=== PATIENT | female | born 1955 | race Caucasian/White ===

== ENCOUNTER → 2019-10-10 11:20 | Outpatient (CLI) | payer OTHER, SELFPAY ==
--- NOTE | 2019-10-10 | DI.MG.S_ITS ---
BILATERAL DIGITAL SCREENING MAMMOGRAM 3D/2D WITH CAD: 10/10/2019 CLINICAL: Routine screening. Comparison is made to exams dated: 08/03/2017 mammogram, 03/14/2016 mammogram, and 09/23/2014 mammogram - [facility]. There are scattered fibroglandular elements in both breasts. Current study was also evaluated with a Computer Aided Detection (CAD) system. No significant masses, calcifications, or other findings are seen in either breast. There has been no significant interval change. IMPRESSION: NEGATIVE There is no mammographic evidence of malignancy. A 1 year screening mammogram is recommended. This exam was interpreted at Station ID: [id number]. NOTE: For mammograms, a report in lay terms will be sent to the patient. Approximately 15% of breast malignancies will not be visualized mammographically. In the management of a palpable breast mass, a negative mammogram must not discourage biopsy of a clinically suspicious lesion. Electronically Signed By: Earl martinez/jenny:10/10/2019 14:38:50 letter sent: Normal Exam ACR BI-RADS Category 1: Negative 3341F
== END ==
PROVIDERS: PCP Family Medicine; Visit Provider Family Medicine
DX: Z12.31 Encounter for screening mammogram for malignant neoplasm of breast (principal)
CPT/HCPCS: 77063; 77067

== ENCOUNTER → 2021-08-03 12:13 | Outpatient (CLI) | payer OTHER, SELFPAY ==
--- NOTE | 2021-08-03 12:15 | DI.MRI.S_ITS ---
PROCEDURE: MR KNEE RT WO CON INDICATIONS: Pain in right knee TECHNIQUE: Noncontrast sagittal PD fast spin echo and T2 fast spin echo with fat saturation, sagittal 3-D FLASH with fat saturation; coronal T1 spin echo and PD fast spin echo with fat saturation, and axial PD fast spin echo with fat saturation through the knee. COMPARISON: None. FINDINGS: Menisci: Medial meniscus: Ill-defined tear involving the body and posterior horn of the medial meniscus. Adjacent small parameniscal cysts measuring 2-3 mm next to the posterior horn. There is partial extrusion Lateral meniscus: Intact. Cruciate ligaments: Anterior cruciate ligament: Intact. Posterior cruciate ligament: Intact. Medial structures: The medial collateral ligament: There is medial bowing of the medial collateral ligament, with mild internal signal changes and no complete rupture. There is adjacent soft tissue edema. The appearance could reflect reactive changes to medial compartment pathology, versus low-grade sprain of the MCL. Semimembranosus tendon: Insertional tendinopathy with intrasubstance T2 hyperintensity. Visualized pes anserinus tendons: Mild distal tenosynovitis Lateral structures: The lateral collateral ligament intact. Biceps femoris tendon appears intact. Popliteus tendon grossly unremarkable. Iliotibial band appears intact. Anterior structures: Quadriceps tendon: Intact. Medial patellofemoral ligament: Intact. Lateral patellofemoral ligament: Intact. Patellar tendon: Mild tendinopathy. Anterior soft tissues: Prepatellar and superficial infrapatellar subcutaneous edema/fluid. Deep infrapatellar region: Normal. Bones and cartilage: Marrow: Marrow edema involving the anteromedial femoral condyle and the anteromedial tibial plateau suggestive of marrow contusions although could be reactive to extensive medial meniscal tear and joint degeneration. Please correlate to history. Medial compartment: Near full-thickness loss of the femoral cartilage. There is diffuse partial-thickness loss of the tibial cartilage. Lateral compartment: Diffuse surface fraying partial-thickness loss of the central weight-bearing femoral and tibial cartilage. Patellofemoral compartment: Full-thickness loss patellar patellar and lateral femoral trochlea cartilage with underlying subchondral cystic change and marrow edema. Joint space: Effusion: Small joint effusion. Popliteal fossa: Al's cyst measuring approximately 4 cm in the cephalocaudal dimension. There could be slight partial rupture. Small ganglion cyst at the origin of the medial gastrocnemius. Ganglion cyst also noted posterior to the tibial attachment of the PCL measuring 1.7 cm. Loose bodies: None. IMPRESSION: Medial meniscal tear involving the body and posterior horn with partial extrusion. Associated sub 5 mm parameniscal cyst . 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 Multilevel spondylosis/endplate changes. Diffuse facet arthropathy. Wall the the the radial reviewed elk a negative the neck Patellar tendinopathy Small joint effusion Al's cyst, in addition to other ganglion cysts as described above. Dictated by: Enrique George M.D. on 08/03/2021 at 13:57 Approved by: Enrique George M.D. on 08/03/2021 at 14:09
== END ==
PROVIDERS: PCP Family Medicine; Referring Provider Family Medicine; Visit Provider Family Medicine
DX: M25.561 Pain in right knee (principal); S83.241A Other tear of medial meniscus, current injury, right knee, initial encounter; M17.11 Unilateral primary osteoarthritis, right knee; M25.461 Effusion, right knee; M71.21 Synovial cyst of popliteal space [Baker], right knee; G89.29 Other chronic pain
CPT/HCPCS: 73721

== ENCOUNTER 2022-10-17 14:41 | Emergency (ER) | payer MEDICARE, OTHER, SELFPAY ==
[2022-10-17 14:48] VITALS: BP 165/92; PULSE 83; RESP 18; TEMP 36.7; O2SAT 98
--- NOTE | 2022-10-17 14:51 | DI.US.S_ITS ---
PROCEDURE: US PERIPH VENOUS LOW EXTREM LT INDICATIONS: CALF PAIN TECHNIQUE: Real-time imaging, as well as color and pulse Doppler interrogation, were performed of the lower extremity deep veins from the inguinal ligament to the popliteal fossa. COMPARISON: None. FINDINGS: The common femoral, femoral and popliteal veins are normally compressible, and free of intraluminal thrombus. Color and pulse Doppler demonstrate normal phasic intraluminal flow. There is normal augmentation response to distal compression maneuver. Al's cyst is present measuring 4.7 x 1.5 x 2 point cm. IMPRESSION: No deep venous thrombosis. Al's cyst. Dictated by: Dorina Vu M.D. on 10/17/2022 at 15:50 Approved by: Dorina Vu M.D. on 10/17/2022 at 15:51
[2022-10-17 18:00] VITALS: PULSE 74; O2SAT 99
[2022-10-17 18:01] VITALS: BP 168/84; PULSE 73; O2SAT 99
--- NOTE | 2022-10-17 18:12 | ED.EXTPRO ---
HPI - Extremity Problem General Chief complaint: Extremity Problem,Nontraumatic Stated complaint: PAIN IN lf CALF & BEHIND KNEE & SPOT IN BUTT CHEEK Time Seen by Provider: 10/17/22 18:05 Source: patient Mode of arrival: Ambulatory History of Present Illness HPI Narrative: 67F nonsmoker with noncontributory medical history presents at the request of her PCP for evaluation of pain and swelling behind her left knee in the absence of any known injury or overuse. She is noticed this swelling and increasing pain behind her left knee for least the past few days and also has a small area in her left buttock. She denies any, warmth or drainage. She denies any history of the same. She denies dizziness, weakness. She has no chest pain or shortness of breath. She denies nausea, vomiting or diarrhea. She recently was on a long distance road trip and after discussing this with her primary care provider she was sent here for evaluation of possible clot Related Data Home Medications Medication Instructions Recorded Confirmed [FISH OIL] ##0 11/05/12 ACETAMINOPHEN 0 mg PO Q4HP ##0 04/22/13 Previous Rx's Medication Instructions Recorded terbinafine HCl 250 mg tablet 250 mg PO QDAY #30 tabs 07/11/17 (Lamisil) betamethasone dipropionate 0.05 % 0.05 % topical SEE INSTRUCTIONS #1 07/17/17 topical ointment tube Allergies Allergy/AdvReac Type Severity Reaction Status Date / Time trazodone [TRAZODONE] Allergy Mild HIVES Unverified 03/06/18 12:23 METALLIC THREADS/GLITTER Allergy Mild SWELLING Uncoded 03/06/18 12:23 Review of Systems Review of Systems Narrative: GENERAL: Denies chills, fatigue, malaise, fever, sweats. HEENT: Denies sinus pain, ear pain, sore throat, difficulty swallowing, dizziness. RESPIRATORY: Denies dyspnea, cough, wheezing, hemoptysis, sputum. CARDIOVASCULAR: Denies chest pain, palpitations, orthopnea, edema, GASTROINTESTINAL: Denies nausea, vomiting, abdominal pain, diarrhea, constipation, melena. : Denies dysuria, frequency, incontinence, hematuria, urinary retention. MUSCULOSKELETAL: See HPI SKIN: Denies rash, skin lesions, or other NEUROLOGIC: Denies weakness, headache, numbness, change in speech, confusion, seizures, incoordination. PSYCHIATRIC: No concerning psychosocial issues. 12 point review of systems is negative except for those stated above Patient History Social History Smoking Status: Never smoker Smoking Status: Never smoker Exam Narrative Exam Narrative: GENERAL: [67] year old patient appears stated age. Well-developed patient, in mild distress. HEAD: Atraumatic. Normocephalic. EYES: Pupils equal round and reactive. Extraocular motions intact. No scleral icterus. No injection or drainage. ENT: Nose without bleeding, purulent drainage. Throat without erythema, tonsillar hypertrophy or exudate. Airway patent. NECK: Trachea midline. Non tender CARDIOVASCULAR: Regular rate and rhythm without murmurs, gallops, or rubs. RESPIRATORY: Clear to auscultation. Breath sounds equal bilaterally. No wheezes, rales, or rhonchi. GASTROINTESTINAL: Abdomen soft, non-tender, nondistended. EXTREMITIES: Moderate swelling behind left knee that is somewhat tender, no fluctuance, erythema or warmth noted, no lymphangitis, no knee effusion. Negative calf squeeze, negative Homans sign BACK: Nontender without deformity or crepitance. No flank tenderness. NEURO: AOx3. SKIN: No rash or erythema of visible areas Initial Vital Signs Initial Vital Signs: Vital Signs Temperature 98.1 F 10/17/22 14:48 Pulse Rate 83 10/17/22 14:48 Respiratory Rate 18 10/17/22 14:48 Blood Pressure 165/92 H 10/17/22 14:48 Pulse Oximetry 98 10/17/22 14:48 Oxygen Delivery Method 10/17/22 14:48 Course Orders Ordered: ED Orders 10/17/22 14:51 US periph venous low extrem lt Stat Vital Signs Vital signs: Vital Signs - 8 hr 10/17/22 14:48 10/17/22 18:00 10/17/22 18:01 Temperature 98.1 F Pulse Rate 83 74 Respiratory Rate 18 Blood Pressure 165/92 H 168/84 H Pulse Oximetry 98 99 Oxygen Delivery Method Room Air 10/17/22 18:01 Temperature Pulse Rate 73 Respiratory Rate Blood Pressure Pulse Oximetry 99 Oxygen Delivery Method Room Air MDM - Extremity (Nontraumatic) Imaging Data US - DVT: Radiologist's Impression: Diagnostics Reports Erica Kenyon??67??F??1955 ? Allergy/Adv: trazodone, [METALLIC THREADS/GLITTER] (More??) Close Vascular Ultrasound (Signed) Dorina Vu - 10/17/22 Knee MRI (Signed) ArielEnrique - 08/03/21 Mammogram Screening (Signed) CortesEarl - 10/10/19 Launch?[address] [address] Ultrasound Report Signed Patient: Erica Kenyon MR#: [id number] : 1955 Acct:[id number] Age/Sex: 67 / F Date of Service: 10/17/22 Loc: ED Accession Number: [id number] ?? Procedure: US periph venous low extrem lt Ordering Provider: Tato Freedman D.O. PROCEDURE:? US PERIPH VENOUS LOW EXTREM LT ? INDICATIONS:? CALF PAIN ? TECHNIQUE:? Real-time imaging, as well as color and pulse Doppler interrogation, were performed of the lower extremity deep veins from the inguinal ligament to the popliteal fossa.? ? COMPARISON:? None. ? FINDINGS:? The common femoral, femoral and popliteal veins are normally compressible, and free of intraluminal thrombus.? Color and pulse Doppler demonstrate normal phasic intraluminal flow.? There is normal augmentation response to distal compression maneuver. ?Al's cyst is present measuring 4.7 x 1.5 x 2 point cm. ? IMPRESSION:? ? No deep venous thrombosis. ? Al's cyst.? ? ? Dictated by: Dorina Vu M.D. on 10/17/2022 at 15:50 ? ? Approved by: Dorina Vu M.D. on 10/17/2022 at 15:51 ? Discharge Plan Departure Patient Disposition: Home Clinical Impression: Cyst, Al's knee Instructions: DI for Al Cyst Activity Restrictions/Additional Instructions: *You have been diagnosed with [left lower extremity Al's cyst. As we discussed your ultrasound is reassuring and there is no evidence of clot. Thankfully there is no specific treatment for the majority of Al's cysts and they require symptomatic treatment only such as Tylenol or Motrin for aches and pains] *What to do: *Please continue to take your regular medications as directed. *Please follow up with your primary care provider in 2-3 days, call for an appointment. Let them know you were seen in the Emergency Department and that we ask that you be seen in follow up. We will electronically transmit a record of today's note if your PCP is in our system *If you do not have a primary care provider please contact the [facility] Resource line at [phone]. They will ask some questions about your medical history and help get you set up with a doctor in the community. *Return to Emergency Department if you should have any new, worsening or concerning symptoms, such as [fever greater than 101 F, shaking chills, worsening pain, persistent vomiting or other bothersome symptoms] Prescriptions: No Action [FISH OIL] Qty: 0 ACETAMINOPHEN 0 mg PO Q4HP Qty: 0 terbinafine HCl [Lamisil] 250 MG tablet 250 mg PO QDAY Qty: 30 0RF betamethasone dipropionate 0.05 % ointment 0.05 % Topical SEE INSTRUCTIONS Qty: 1 1RF Referrals: Alma Robison MD [Primary Care Provider] - Visit Report Forms: Patient Portal/API
--- NOTE | 2022-10-17 18:22 | PC.NURSE ---
Assessment completed by Dr. Gupta, this nurse in agreement.
== END 2022-10-17 18:24 | disposition home or self-care (01) ==
PROVIDERS: Emergency Provider Emergency Medicine; PCP Family Medicine
DX: M71.22 Synovial cyst of popliteal space [Baker], left knee (principal)
CPT/HCPCS: 93971; 99283

== ENCOUNTER → 2022-11-01 16:24 | Outpatient (CLI) | payer MEDICARE, OTHER, SELFPAY ==
--- NOTE | 2022-11-01 16:26 | DI.MG.S_ITS ---
BILATERAL DIGITAL SCREENING MAMMOGRAM 3D/2D WITH CAD: 11/01/2022 CLINICAL: Routine screening. Comparison is made to exams dated: 10/10/2019 mammogram, 08/03/2017 mammogram, and 03/14/2016 mammogram - . There are scattered areas of fibroglandular density in both breasts (category b / 25%-50% glandular tissue). Current study was also evaluated with a Computer Aided Detection (CAD) system. No significant masses, calcifications, or other findings are seen in either breast. There has been no significant interval change. IMPRESSION: NEGATIVE There is no mammographic evidence of malignancy. A 1 year screening mammogram is recommended. Based on the Tyrer Cuzick model (a risk assessment model) the patient's lifetime risk is 6.9% and her 10 year risk is 3.5%. According to the ACR, ACS, and NCCN guidelines, an annual breast MRI exam along with mammogram is recommended if the patient's lifetime risk is 20% or greater. This exam was interpreted at Station ID: [id number]. NOTE: For mammograms, a report in lay terms will be sent to the patient. Approximately 15% of breast malignancies will not be visualized mammographically. In the management of a palpable breast mass, a negative mammogram must not discourage biopsy of a clinically suspicious lesion. Electronically Signed By: Geraldo ortiz/jenny:11/01/2022 17:25:50 letter sent: Normal Exam ACR BI-RADS Category 1: Negative 3341F
== END ==
PROVIDERS: PCP Family Medicine; Referring Provider Family Medicine; Visit Provider Family Medicine
DX: Z12.31 Encounter for screening mammogram for malignant neoplasm of breast (principal)
CPT/HCPCS: 77063; 77067

== ENCOUNTER → 2023-09-20 09:45 | Outpatient (CLI) | payer MEDICARE, OTHER, SELFPAY ==
--- NOTE | 2023-09-20 | DI.RAD.S_ITS ---
Bone Density Report Name: THADDEUS MAR Age: 68 Sex: Female Ethnicity: White Date of : 1955 Indication: postmenopausal; screening for osteoporosis; Referring Provider: PETER TAN Study: Bone densitometry was performed. Exam Date: September 20, 2023 Accession number: [id number] Bone Density: Region BMD T-score Z-score Classification AP Spine(L1-L4) 1.064 0.2 2.1 Normal Femoral Neck (Left) 0.736 -1.0 0.6 Normal Total Hip (Left) 0.882 -0.5 0.8 Normal Femoral Neck (Right) 0.736 -1.0 0.6 Normal Total Hip (Right) 0.882 -0.5 0.8 Normal Total Hip Mean 0.882 -0.5 0.8 Normal World Health Organization criteria for BMD impression classify patients as: Normal (T-score at or above -1.0), Osteopenia (T-score between -1.0 and -2.5), or Osteoporosis (T-score at or below -2.5). 10-year Fracture Risk: FRAX not reported because: All T-scores for Spine Total, Hip Total, Femoral Neck at or above -1.0 Previous Exams: -- Region Exam Age BMD T-score BMD Change BMD Change Date g/cm2 vs Baseline vs Previous -- AP Spine (L1-L4) 09/20/2023 68 1.064 0.2 -0.052 (-4.6%)# -0.052 (-4.6%)# 08/03/2017 61 1.116 0.6 Total Hip(Left) 09/20/2023 68 0.882 -0.5 -0.116 (-11.6%)# -0.116 (-11.6%)# 08/03/2017 61 0.997 0.5 Total Hip(Right) 09/20/2023 68 0.882 -0.5 -0.086 (-8.8%)# -0.086 (-8.8%)# 08/03/2017 61 0.968 0.2 -- *Denotes significance at 95% confidence level, LSC for AP Spine = 0.022 g/cm2, LSC for Total Hip = 0.027 g/cm2 # Denotes dissimilar scan types or analysis methods Impression: The patient has normal bone mass. No significant bone loss was observed. Discussion: BONE DENSITY IS ABOVE THE MINIMUM DESIRABLE LEVEL AT ALL SKELETAL SITES TESTED. This patient's bone mineral density is above the minimum desirable level (T-score -1.0 or better) at all sites measured. The patient should follow a healthful lifestyle (good nutrition with adequate calcium and vitamin D, and appropriate weight-bearing exercise). Follow-Up: Consider repeating this study in 5 years or sooner if there is some new clinical indication. Reported by: MYRIAM HIRSCH M.D. on 09/20/2023 10:21:00 AM.
== END ==
PROVIDERS: PCP Family Medicine; Referring Provider Family Medicine; Visit Provider Family Medicine
DX: Z78.0 Asymptomatic menopausal state (principal); Z13.820 Encounter for screening for osteoporosis
CPT/HCPCS: 77080

== ENCOUNTER 2023-10-05 20:29 | Emergency (ER) | payer MEDICARE, OTHER, SELFPAY ==
[2023-10-05] VITALS (9 sets, daily range): BP systolic 114–183; BP diastolic 65–84; PULSE 61–72; RESP 12–19; TEMP 36.9; O2SAT 96–99; BMI 23.6
--- NOTE | 2023-10-05 20:45 | DI.RAD.S_ITS ---
PROCEDURE: XR CHEST 1V INDICATIONS: chest pain TECHNIQUE: One view of the chest was acquired. COMPARISON: BASHIR Kelly, CHEST 2 VIEW, 06/02/2015, 9:34. FINDINGS: Surgical changes and devices: None. Lungs and pleura: Lungs are clear. No pleural effusions or pneumothorax. Mediastinum: Mediastinal contours appear normal. Heart size is normal. Bones and chest wall: No suspicious bony lesions. Overlying soft tissues appear unremarkable. IMPRESSION: No acute cardiopulmonary pathology. Dictated by: Rodrigo Saxena M.D. on 10/05/2023 at 21:50 Approved by: Rodrigo Saxena M.D. on 10/05/2023 at 21:51
[2023-10-05 21:17] LABS: Add Manual Diff / Slide Review NO; Basophils Absolute Auto 0 /uL (0-100); Basophils Percent Auto 0.5 % (0-2); Eosinophils Absolute Auto 200 /uL (0-450); Eosinophils Percent Auto 2.2 % (2-4); Hematocrit 37.8 % (36-46); Lymphocytes Absolute Auto 2300 /uL (1100-4500); Lymphocytes Percent Auto 29.2 % (25-40); Mean Corpuscular HGB Conc 34.3 % (30-36); Mean Corpuscular Hemoglobin 29.4 PG (26-34); Mean Corpuscular Volume 85.8 fL (80-100); Monocytes Absolute Auto 500 /uL (0-900); Monocytes Percent Auto 6.4 % (3-14); Neutrophils Absolute Auto 4800 /uL (1500-7000); Neutrophils Percent Auto 61.7 % (50-75); Platelet Count 283 X10^3/uL (150-400); Red Cell Distribution Width 13.9 % (11.6-14.8); White Blood Cell Count 7.7 X10^3/uL (4.5-11.0)
[2023-10-05 21:19] LABS: Prothrombin Time 11.2 SECONDS (10.1-12.7)
[2023-10-05 21:22] LABS: PTT Partial Thromboplastin Tim 31 SECONDS (26-36)
[2023-10-05 21:24] LABS: Alanine Aminotransferase 19 IU/L (<35); Albumin 4.3 g/dL (3.5-5.0); Albumin Globulin Ratio 1.3 (1.0-2.8); Alkaline Phosphatase 72 U/L (38-126); Aspartate Aminotransferase 25 IU/L (14-36); BUN Creatinine Ratio 27.4 (6-22); Bilirubin Total 0.5 mg/dL (0.2-1.3); Blood Urea Nitrogen 20 mg/dL (7-17); Calcium 9.3 mg/dL (8.4-10.2); Carbon Dioxide 23 mmol/L (22-32); Chloride 106 mmol/L (98-107); Creatine Kinase 64 U/L (30-135); Estimated Glomerular Filt Rate > 60 mL/min (>60); Globulin 3.4 g/dL (1.7-4.1); Glucose 94 mg/dL (80-110); HEMOLYSIS 17 (0-50); Lipase 110 U/L (23-300); Magnesium 2.1 mg/dL (1.6-2.3); Potassium 3.8 mmol/L (3.4-5.1); Sodium 138 mmol/L (137-145); Total Protein 7.7 g/dL (6.3-8.2)
[2023-10-05 21:35] LABS: Troponin I < 0.012 ng/mL (0.01-0.034)
--- NOTE | 2023-10-05 23:19 | ED_ITS ---
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 She was folding laundry describes this as nothing particularly strenuous when she had the acute onset of severe sharp stabbing pain down the inner portion of her left arm from mid bicep to midforearm. It was painful to move or bend her arm in any way. She took ibuprofen and after consultation [place] medical providers [place] the [facility] come over for further evaluation. Her family history is impressive for coronary disease with a father who had cardiac arrest at the age of 48 and at 52. An older brother with a CABG at 50 and older sister with a CABG 70 a younger brother with a stent at 50 and a CABG at 70. Approximately 5 years ago she did have an evaluation with the [facility] with a standard treadmill test that was reassuring. She does not describe any exertional dyspnea, orthopnea, chest pain, palpitations or increasing fatigue over the last week. No fevers, cough, chills. Related Data Home Medications Medication Instructions Recorded Confirmed [FISH OIL] ##0 11/05/12 ACETAMINOPHEN 0 mg PO Q4HP ##0 04/22/13 Previous Rx's Medication Instructions Recorded terbinafine HCl 250 mg tablet 250 mg PO QDAY #30 tabs 07/11/17 (Lamisil) betamethasone dipropionate 0.05 % 0.05 % topical SEE INSTRUCTIONS #1 07/17/17 topical ointment tube Allergies Allergy/AdvReac Type Severity Reaction Status Date / Time tioconazole Allergy Mild ITCHING Verified 10/05/23 20:38 [From Monistat 1 (tioconazole)] trazodone [TRAZODONE] Allergy Mild HIVES Unverified 03/06/18 12:23 METALLIC THREADS/GLITTER Allergy Mild SWELLING Uncoded 03/06/18 12:23 Review of Systems Review of Systems Narrative: Pertinent positive and negative findings as per HPI Patient History Social History Smoking Status: Never smoker Smoking Status: Never smoker alcohol intake frequency: 0-2 drinks per day Substance Use Type: does not use Exam Initial Vital Signs Initial Vital Signs: Vital Signs Temperature 98.5 F 10/05/23 20:32 Pulse Rate 71 10/05/23 20:32 Respiratory Rate 18 10/05/23 20:32 Blood Pressure 183/84 H 10/05/23 20:32 Pulse Oximetry 99 10/05/23 20:32 Oxygen Delivery Method Room Air 10/05/23 20:32 General: Healthy appearing, in no acute distress. Able to give a complete and coherent history. Well-nourished well-developed HEENT: Moist mucous membranes, normal sclera with reactive pupils, Neck: No JVD, supple Respiratory: Lungs are clear to auscultation, no wheezing no rales no rhonchi. Full and symmetrical air movement Cardiac: Regular rate and rhythm no murmurs no bruits Abdomen: Soft, nontender, good bowel tones, no flank pain Skin: Warm and dry, no rashes Neurologic: Grossly neurologically intact with no obvious asymmetries or abnormalities Extremities: No trauma, well perfused. No residual pain in the left upper extremity and no tenderness with any manipulation of the shoulder elbow or wrist on the left side Psych: Cooperative, appropriate insight and affect Course Orders Ordered: ED Orders 10/05/23 20:41 EKG-12 Lead Stat 10/05/23 20:45 XR chest 1V Stat 10/05/23 21:00 Complete Blood Count AUTO DIFF Stat Comprehensive Metabolic Panel Stat Lipase Stat Magnesium Stat PTT Partial Thromboplastin Virgil Stat Prothrombin Time INR Stat Troponin & CK Cardiac Panel Stat 10/05/23 23:47 Trop I [Troponin I] Stat Discontinued Medications Aspirin (Aspirin 81 Mg Chew Tab) 324 mg PO NOW ONE Stop: 10/05/23 20:45 Last Admin: 10/05/23 21:30 Dose: Not Given Documented By: ALCIRA Vital Signs Vital signs: Vital Signs - 8 hr 10/05/23 20:32 10/05/23 21:03 10/05/23 21:30 Temperature 98.5 F Pulse Rate 71 72 Respiratory Rate 18 19 Blood Pressure 183/84 H 157/81 H Pulse Oximetry 99 98 Oxygen Delivery Method Room Air 10/05/23 21:30 10/05/23 21:59 10/05/23 22:00 Temperature Pulse Rate 72 70 Respiratory Rate 19 17 Blood Pressure 144/68 H Pulse Oximetry 98 96 Oxygen Delivery Method 10/05/23 22:00 10/05/23 22:30 10/05/23 22:30 Temperature Pulse Rate 68 71 Respiratory Rate 16 16 Blood Pressure 122/71 Pulse Oximetry 96 96 Oxygen Delivery Method 10/05/23 23:00 10/05/23 23:00 10/05/23 23:30 Temperature Pulse Rate 63 69 Respiratory Rate 12 19 Blood Pressure 128/69 Pulse Oximetry 97 98 Oxygen Delivery Method 10/05/23 23:58 10/05/23 23:58 10/06/23 00:00 Temperature Pulse Rate 61 Respiratory Rate 14 Blood Pressure 114/65 123/69 Pulse Oximetry 97 Oxygen Delivery Method 10/06/23 00:00 10/06/23 00:30 10/06/23 00:30 Temperature Pulse Rate 63 62 Respiratory Rate 17 23 Blood Pressure 114/70 Pulse Oximetry 96 96 Oxygen Delivery Method Medical Decision Making Lab Data 10/05/23 21:00 10/05/23 21:00 Labs: Lab Results 10/05/23 10/05/23 Range/Units 21:00 23:47 WBC 7.7 (4.5-11.0) X10^3/uL RBC 4.40 (4.0-5.2) X10^6/uL Hgb 13.0 (12.0-16.0) g/dL Hct 37.8 (36-46) % MCV 85.8 (80-100) fL MCH 29.4 (26-34) PG MCHC 34.3 (30-36) % RDW 13.9 (11.6-14.8) % Plt Count 283 (150-400) X10^3/uL Neut % (Auto) 61.7 (50-75) % Lymph % (Auto) 29.2 (25-40) % Roberts % (Auto) 6.4 (3-14) % Eos % (Auto) 2.2 (2-4) % Baso % (Auto) 0.5 (0-2) % Neut # (Auto) 4800 (4703-5689) /uL Lymph # (Auto) 2300 (4025-3171) /uL Roberts # (Auto) 500 (0-900) /uL Eos # (Auto) 200 (0-450) /uL Baso # (Auto) 0 (0-100) /uL PT 11.2 (10.1-12.7) SECONDS INR 1.0 (0.9-1.3) APTT 31 (26-36) SECONDS Sodium 138 (137-145) mmol/L Potassium 3.8 (3.4-5.1) mmol/L Chloride 106 (98-107) mmol/L Carbon Dioxide 23 (22-32) mmol/L BUN 20 H (7-17) mg/dL Creatinine 0.73 (0.52-1.04) mg/dL Estimated GFR > 60 (>60) mL/min BUN/Creatinine Ratio 27.4 H (6-22) Glucose 94 (80-110) mg/dL Calcium 9.3 (8.4-10.2) mg/dL Magnesium 2.1 (1.6-2.3) mg/dL Total Bilirubin 0.5 (0.2-1.3) mg/dL AST 25 (14-36) IU/L ALT 19 (<35) IU/L Alkaline Phosphatase 72 (38-126) U/L Total Creatine Kinase 64 (30-135) U/L Troponin I < 0.012 < 0.012 (0.01-0.034) ng/mL Total Protein 7.7 (6.3-8.2) g/dL Albumin 4.3 (3.5-5.0) g/dL Globulin 3.4 (1.7-4.1) g/dL Albumin/Globulin Ratio 1.3 (1.0-2.8) Lipase 110 (23-300) U/L [facility] Narrative Medical decision making narrative: CC: Left arm pain while folding laundry at 5:00 p.m. today Complicating co-morbidities: Very impressive family history for early coronary disease Data collected from: patient, Social determinants of health that may influence the patients condition: They do live on [place] and accessing care can be a bit more challenging Differential considered: Acute coronary syndrome, musculoskeletal pain, Exam documented above, pertinent findings include: Completely resolved pain no abnormalities to muscular skeletal exam of the left upper extremity. Remainder of exam is entirely benign Lab Test results independently reviewed as above. Pertinent findings: CBC is unremarkable Chemistries show no acute finding Initial troponin is nondetectable Lipase is reassuring Independently reviewed EKG sinus rhythm at a rate of 70. Normal intervals, normal axis, no acute ischemic changes Imaging studies independently reviewed: Chest x-ray shows no acute cardiopulmonary abnormality Treatments:ibuprofen prior to arrival Re-evaluations: Pain entirely resolved, not reproducible with left arm manipulation Discussion: 68-year-old woman with no personal cardiac history but is significant family cardiac history with acute medial aspect left arm pain while she was folding laundry today it was painful to lift up move her arm extend or flex her elbow. Not associated with dyspnea, orthopnea, chest pain or palpitations. Because of the severity of the pain and the impressive family history recommendation was made to come to the emergency room for further cardiac evaluation. Cardiac evaluation is quite reassuring with a heart score of 3 which makes her low risk for 30 day major adverse cardiac event risk. This is reviewed with her and I believe she is safe for discharge home. At this point the most likely explanation is an acute musculoskeletal pain in the arm rather than cardiac abnormality. I have recommended that she follow up with her primary care physician and she may be a very appropriate person to schedule for nuclear medicine stress testing as an outpatient to help further stratify cardiac risk factors. At this point she is safe for discharge and all questions have been answered Discharge Plan Departure Patient Disposition: Home Clinical Impression: Musculoskeletal pain of left upper extremity Activity Restrictions/Additional Instructions: Thank you for coming in today With your family history, that pain in the left arm could very well have represented heart pain. Coming to the emergency department was absolutely appropriate. Fortunately your workup in the emergency department was very reassuring. There were no dramatic EKG changes and your 1st and 2nd troponin levels were both undetectable. At this point you are at very low risk for a major adverse coronary event and discharge home is safe. I suspect that the acute pain in your arm was a musculoskeletal issue which is why ibuprofen resolved the pain. On the other hand, with your family history I believe that consideration of a nuclear medicine stress test for further cardiac risk evaluation as an outpatient may well be a reasonable discussion to have with your primary care doctor. If you find that you are getting worse or develop any new symptoms, please feel free to return to the emergency department for further evaluation. Prescriptions: No Action [FISH OIL] Qty: 0 ACETAMINOPHEN 0 mg PO Q4HP Qty: 0 terbinafine HCl [Lamisil] 250 MG tablet 250 mg PO QDAY Qty: 30 0RF betamethasone dipropionate 0.05 % ointment 0.05 % Topical SEE INSTRUCTIONS Qty: 1 1RF Referrals: Alma Robison MD [Primary Care Provider] - Stand Alone Forms: Patient Portal/API
[2023-10-06] VITALS: BP 123/69; PULSE 63; RESP 17; O2SAT 96
[2023-10-06 00:20] LABS: Troponin I < 0.012 ng/mL (0.01-0.034)
[2023-10-06 00:30] VITALS: BP 114/70; PULSE 62; RESP 23; O2SAT 96
[2023-10-06 01:00] VITALS: BP 137/64; PULSE 60; RESP 14; O2SAT 94
[2023-10-06 01:30] VITALS: BP 126/62; PULSE 64; RESP 13; O2SAT 94
== END 2023-10-06 01:43 | disposition home or self-care (01) ==
PROVIDERS: Emergency Provider Emergency Medicine; PCP Family Medicine
DX: M79.602 Pain in left arm (principal); R07.9 Chest pain, unspecified
CPT/HCPCS: 36415; 71045; 80053; 82550; 83690; 83735; 84484; 85025; 85610; 85730; 93005; 93010; 99283; 99284

== ENCOUNTER → 2024-09-09 10:56 | Outpatient (CLI) | payer MEDICARE, OTHER, SELFPAY ==
--- NOTE | 2024-09-09 10:58 | DI.MG.S_ITS ---
BILATERAL DIGITAL SCREENING MAMMOGRAM 3D/2D WITH CAD: 09/09/2024 CLINICAL: Routine screening. Comparison is made to exams dated: 11/01/2022 mammogram, 10/10/2019 mammogram, and 08/03/2017 mammogram - [facility]. There are scattered areas of fibroglandular density (category b / 25%-50% glandular tissue). Current study was also evaluated with a Computer Aided Detection (CAD) system. No significant masses, calcifications, or other findings are seen in either breast. There has been no significant interval change. IMPRESSION: NEGATIVE There is no mammographic evidence of malignancy. A 1 year screening mammogram is recommended. Based on the Tyrer Cuzick model (a risk assessment model) the patient's lifetime risk is 6.6% and her 10 year risk is 3.5%. According to the ACR, ACS, and NCCN guidelines, an annual breast MRI exam along with mammogram is recommended if the patient's lifetime risk is 20% or greater. This exam was interpreted at Station ID: [id number]. NOTE: For mammograms, a report in lay terms will be sent to the patient. Approximately 15% of breast malignancies will not be visualized mammographically. In the management of a palpable breast mass, a negative mammogram must not discourage biopsy of a clinically suspicious lesion. Electronically Signed By: Geraldo [email or web address]:09/09/2024 12:19:45 letter sent: Normal Exam ACR BI-RADS Category 1: Negative
== END ==
LOC: MAMMO 10:57
PROVIDERS: PCP Family Medicine; Referring Provider Family Medicine; Visit Provider Family Medicine
DX: Z12.31 Encounter for screening mammogram for malignant neoplasm of breast (principal)
CPT/HCPCS: 77063; 77067

== ENCOUNTER 2025-01-28 13:59 | Emergency (ER) | payer MEDICARE, OTHER, SELFPAY ==
--- NOTE | 2025-01-28 14:07 | ED.DIZZY ---
HPI - Dizziness General Chief Complaint: Dizziness Stated Complaint: dizziness Time Seen by Provider: 01/28/25 14:07 History of Present Illness HPI Narrative: 69-year-old female wit past medical history of hyperlipidemia comes into the ED from home for evaluation of lightheaded dizziness flushing states that this started at 1:00 a.m. this morning, she states that she has had 2 other episodes at around 9:00 a.m., states that when this initially started she did call medics was evaluated and told that she could go to the ER for further evaluation treatment. At time of evaluation patient without headache lightheadedness dizziness no chest pain shortness breath fever chills nausea vomiting abdominal pain or any other GI/ symptoms time. Not on any blood thinners, no trauma no falls. Patient states she has not having any symptoms currently. She just states that given the symptoms previously wanted to be evaluated in the emergency department. Related Data Home Medications Medication Instructions Recorded Confirmed [FISH OIL] ##0 11/05/12 ACETAMINOPHEN 0 mg PO Q4HP ##0 04/22/13 Previous Rx's Medication Instructions Recorded terbinafine HCl 250 mg tablet 250 mg PO QDAY #30 tabs 07/11/17 (Lamisil) betamethasone dipropionate 0.05 % 0.05 % topical SEE INSTRUCTIONS #1 07/17/17 topical ointment tube Allergies Allergy/AdvReac Type Severity Reaction Status Date / Time tioconazole Allergy Mild ITCHING Verified 10/05/23 20:38 [From Monistat 1 (tioconazole)] trazodone [TRAZODONE] Allergy Mild HIVES Unverified 03/06/18 12:23 METALLIC THREADS/GLITTER Allergy Mild SWELLING Uncoded 03/06/18 12:23 Review of Systems Review of Systems Narrative: General: Denies fever, chills, weight loss HEENT: Denies headache, eye drainage, eye irritation, head trauma, sore throat, voice change Cardiovascular: Denies any chest pain, palpitations, tachycardia Respiratory: Denies any shortness of breath, cough, wheeze, stridor GI/: Denies any abdominal pain, nausea, vomiting, diarrhea, bright red blood per rectum, melanotic stools, urinary frequency, urinary retention, dysuria, hematuria MSK: Denies any joint pain, muscle pains, swelling Skin: Denies any rashes, lesions, discoloration Neuro: Positive lightheaded dizziness Psych: Denies SI/HI Patient History Social History Smoking Status: Never smoker Smoking Status: Never smoker alcohol intake frequency: 0-2 drinks per day Exam Narrative Exam Narrative: General: Cooperative, comfortable, well-developed, not in acute distress HEENT: Normocephalic, atraumatic, PERRLA, normal sclera, eyelids normal, Neck: Active full range of motion, atraumatic Chest: Normal to inspection, negative crepitus, no overlying erythema ecchymosis Respiratory: Normal respiratory effort, not in acute respiratory distress, clear to auscultation bilaterally negative cough, wheeze, tachypnea, rhonchi, rales Cardiology: Regular rate rhythm negative gallop, murmur, rubs GI/: Normal to inspection, soft, nonrigid, no tenderness to palpation, exam deferred MSK: Full range of active range of motion of all 4 extremities, atraumatic Skin: No rashes lesions noted Neuro: NIH of 0, no focal deficits Alert awake oriented x3, moves all 4 extremities spontaneously, cranial nerves intact, able to answer all questions appropriately follows commands appropriately Psych: Cooperative, negative suicidal or homicidal ideations Initial Vital Signs Initial Vital Signs: Vital Signs Pulse Oximetry 97 01/28/25 14:10 Course Orders Ordered: ED Orders 01/28/25 14:11 EKG-12 Lead Stat 01/28/25 14:14 CXR [XR chest 1V] Stat 01/28/25 14:15 CT angio head and neck Stat CT head/brain wo con Stat 01/28/25 14:20 CBC Auto Diff [Complete Blood Count AUTO DIFF] Stat CMP [Comprehensive Metabolic Panel] Stat Lipase Stat MAG [Magnesium] Stat Troponin & CK Cardiac Panel Stat 01/28/25 14:27 Covid-19 + FLU A/B + RSV - PCR Stat Vital Signs Vital signs: Vital Signs - 8 hr 01/28/25 14:10 01/28/25 14:12 01/28/25 14:21 Temperature 97.7 F Pulse Rate 85 75 Respiratory Rate 18 Blood Pressure 165/77 H Pulse Oximetry 97 99 99 Oxygen Delivery Method Room Air 01/28/25 14:21 01/28/25 14:30 01/28/25 14:30 Temperature Pulse Rate 66 Respiratory Rate 12 Blood Pressure 165/77 H 147/67 H Pulse Oximetry 98 Oxygen Delivery Method Room Air 01/28/25 15:00 01/28/25 15:00 01/28/25 15:30 Temperature Pulse Rate 69 72 Respiratory Rate 12 13 Blood Pressure 143/68 H Pulse Oximetry 99 98 Oxygen Delivery Method Room Air 01/28/25 15:30 Temperature Pulse Rate Respiratory Rate Blood Pressure 138/81 Pulse Oximetry Oxygen Delivery Method MDM - Dizziness Differential Diagnosis Differential diagnosis: Likely other (ACS, pneumonia, electrolyte abnormality, COVID, flu, intracranial hemorrhage, CVA) Lab Data 01/28/25 14:20 01/28/25 14:20 Labs: Lab Results 01/28/25 01/28/25 Range/Units 14:20 14:27 WBC 8.1 (4.5-11.0) X10^3/uL RBC 4.48 (4.0-5.2) X10^6/uL Hgb 13.2 (12.0-16.0) g/dL Hct 38.7 (36-46) % MCV 86.4 (80-100) fL MCH 29.5 (26-34) PG MCHC 34.1 (30-36) % RDW 13.9 (11.6-14.8) % Plt Count 304 (150-400) X10^3/uL Neut % (Auto) 65.3 (50-75) % Lymph % (Auto) 24.6 L (25-40) % [place] % (Auto) 4.7 (3-14) % Eos % (Auto) 3.4 (2-4) % Baso % (Auto) 2.0 (0-2) % Neut # (Auto) 5300 (7320-9613) /uL Lymph # (Auto) 2000 (1037-9842) /uL [place] # (Auto) 400 (0-900) /uL Eos # (Auto) 300 (0-450) /uL Baso # (Auto) 200 H (0-100) /uL Sodium 139 (137-145) mmol/L Potassium 3.6 (3.4-5.1) mmol/L Chloride 102 (98-107) mmol/L Carbon Dioxide 26 (22-32) mmol/L BUN 12 (7-17) mg/dL Creatinine 0.65 (0.52-1.04) mg/dL Estimated GFR > 60 (>60) mL/min BUN/Creatinine Ratio 18.5 (6-22) Glucose 115 H (80-110) mg/dL Calcium 9.3 (8.4-10.2) mg/dL Magnesium 2.0 (1.6-2.3) mg/dL Total Bilirubin 0.4 (0.2-1.3) mg/dL AST 31 (14-36) IU/L ALT 26 (<35) IU/L Alkaline Phosphatase 85 (38-126) U/L Total Creatine Kinase 59 (30-135) U/L Troponin I < 0.012 (0.01-0.034) ng/mL Total Protein 8.5 H (6.3-8.2) g/dL Albumin 4.9 (3.5-5.0) g/dL Globulin 3.6 (1.7-4.1) g/dL Albumin/Globulin Ratio 1.4 (1.0-2.8) Lipase 111 (23-300) U/L SARS-CoV-2 (PCR) Negative (Negative) Influenza A (RT-PCR) Flu a negative (NEGATIVE) Influenza B (RT-PCR) Flu b negative (NEGATIVE) RSV (PCR) Negative (Negative) Urine Dip Bedside Urine Glucose Negative Bedside Urine Bilirubin - Negative Bedside Urine Ketone - Negative Urine Specific [place] 1.010 Bedside Urine Occult Blood - Negative Bedside Urine pH 6.0 Bedside Urine Protein - Negative Bedside Urine Urobilinogen - Negative Bedside Urine Nitrite - Negative Bedside Urine Leukocytes - Negative Esterase Imaging Data Chest x-ray: Radiologist's Impression: [place] [address] CT Scan Report Signed Patient: Erica Kenyon MR#: [id number] : 1955 Acct:[id number] Age/Sex: 69 / F Date of Service: 01/28/25 Loc: ED Accession Number: [id number] Procedure: CT head/brain wo con Ordering Provider: Rashaun Tillman D.O. PROCEDURE: CT HEAD/BRAIN WO CON INDICATIONS: dizzy TECHNIQUE: Noncontrast 4.5 mm thick angled axial sections acquired from the foramen magnum to the vertex, with coronal and sagittal reformats. For radiation dose reduction, the following was used: automated exposure control, adjustment of mA and/or kV according to patient size. COMPARISON: None. FINDINGS: Image quality: Diagnostic. CSF spaces: Basal cisterns are patent. No extra-axial fluid collections. The ventricles are symmetric in size and shape. Brain: No intracranial bleeds or masses. There is cerebral volume loss for age, with resultant ventricular and sulcal prominence. There are periventricular and deep white matter chronic small vessel ischemic changes. There is intracranial internal carotid artery atherosclerosis. Skull and face: Calvarium and visualized facial bones appear intact, without suspicious lesions. Incidental note is made of hyperostosis frontalis. This is not considered to be pathologic in a woman of this age. Sinuses: Visualized sinuses and mastoids are clear. IMPRESSION: No imaging explanation is found for this patient's presenting symptoms. No acute intracranial pathology. To the limits of this noncontrast study, no findings of intracranial masses or mass effect can be seen. CT scan - head: Radiologist's Impression: [place] [address] CT Scan Report Signed Patient: Erica Kenyon MR#: [id number] : 1955 Acct:[id number] Age/Sex: 69 / F Date of Service: 01/28/25 Loc: ED Accession Number: [id number] Procedure: CT head/brain wo con Ordering Provider: Rashaun Tillman D.O. PROCEDURE: CT HEAD/BRAIN WO CON INDICATIONS: dizzy TECHNIQUE: Noncontrast 4.5 mm thick angled axial sections acquired from the foramen magnum to the vertex, with coronal and sagittal reformats. For radiation dose reduction, the following was used: automated exposure control, adjustment of mA and/or kV according to patient size. COMPARISON: None. FINDINGS: Image quality: Diagnostic. CSF spaces: Basal cisterns are patent. No extra-axial fluid collections. The ventricles are symmetric in size and shape. Brain: No intracranial bleeds or masses. There is cerebral volume loss for age, with resultant ventricular and sulcal prominence. There are periventricular and deep white matter chronic small vessel ischemic changes. There is intracranial internal carotid artery atherosclerosis. Skull and face: Calvarium and visualized facial bones appear intact, without suspicious lesions. Incidental note is made of hyperostosis frontalis. This is not considered to be pathologic in a woman of this age. Sinuses: Visualized sinuses and mastoids are clear. IMPRESSION: No imaging explanation is found for this patient's presenting symptoms. No acute intracranial pathology. To the limits of this noncontrast study, no findings of intracranial masses or mass effect can be seen. CT angio head and neck: Radiologist's Impression: [address] [address] [address] Scan Report Signed Patient: Erica Kenyon MR#: [id number] : 1955 Acct:[id number] Age/Sex: 69 / F Date of Service: 01/28/25 Loc: ED Accession Number: [id number] Procedure: CT angio head and neck Ordering Provider: Rashaun Tillman D.O. PROCEDURE: CT ANGIO HEAD AND NECK INDICATIONS: dizzy TECHNIQUE: After the administration of intravenous contrast, 1 mm thick sections acquired from the aortic arch through the [place]. 3-dimensional ydvxajz-hretqbeaa-nfhwvdqwvp (MIP) and/or volume rendering reformats were acquired of the central intracranial vasculature and neck separately. For radiation dose reduction, the following was used: automated exposure control, adjustment of mA and/or kV according to patient size. COMPARISON: [facility], CT, CT HEAD/BRAIN WO CON, 01/28/2025, 15:23. [facility], CR, XR CHEST 1V, 01/28/2025, 14:12. FINDINGS: Image quality: Diagnostic. BRAIN: See separately dictated CT head report of 01/28/2025. HEAD CT ANGIOGRAPHY: Anterior circulation: Intracranial internal carotid arteries are normal in size and flow. The flow within the paired anterior cerebral arteries is normal and symmetric. The flow within the middle cerebral arteries is normal and symmetric. The anterior communicating artery is seen. No aneurysms are seen. Posterior circulation: Visualized portions of the vertebral arteries demonstrate normal caliber, and join to form a normal appearing basilar artery. Flow within the posterior cerebral arteries is normal and symmetric. No aneurysms are seen. NECK CT ANGIOGRAPHY: Carotid system: The great vessels demonstrate a conventional anatomy as they arise from the aortic arch. The origins of the common carotid arteries appear patent. The common carotid arteries demonstrate normal caliber and courses. The bifurcation regions are both widely patent. The internal carotid arteries demonstrate normal calibers and courses. Posterior circulation: The origins of the vertebral arteries both appear widely patent. The more superior extracranial portions of both vertebral arteries also demonstrate normal courses and calibers. They join to form a normal appearing basilar artery. Soft tissues: Visualized neck soft tissues demonstrate no suspicious abnormalities. Bones: No suspicious bony lesions. Visualized cervical spine appears normally aligned. IMPRESSION: No significant intracranial arterial abnormality is seen. No significant abnormality is seen within the arteries of the neck. Any quantitative measurements of stenosis were performed using NASCET criteria. ECG Data Interpretation: EKG interpreted ED physician sinus 69 beats per minute QTC [address] changes no STEMI MDM Narrative Medical decision making narrative: 69-year-old female with a history of hyperlipidemia presents to the emergency department for lightheaded dizziness flushness states it started at 1:00 a.m. this morning. She states that she has had 2 other episodes when she is going from sitting to standing but denies any actual syncope. She states that when this initially started she called medics the [facility], they evaluated her and told her that if she wanted she could take the [place] to be evaluated in the emergency department here. At time of evaluation patient NIH of 0 no focal deficits. Not having any headache visual disturbances chest pain shortness breath fever chills nausea vomiting abdominal pain or the lightheadedness. EKG nonischemic in nature. Lab work without any signs of leukocytosis anemia normal platelets come and Chem panel unremarkable, CT head CTA head and neck without any acute abnormalities. Patient without any symptoms at this time. She was instructed to follow up with primary care in outpatient setting she verbalized understanding of this strict return precautions given agrees to being discharged home with outpatient follow up Discharge Plan Departure Patient Disposition: Home Clinical Impression: Lightheadedness Instructions: DI for Dizziness-Nonvertigo Activity Restrictions/Additional Instructions: Please follow up with the primary care doctor Please read the discharge instructions sheet carefully and bring all papers to all doctor follow-up visits, as it may contain information that your doctor may want to see. Disease processes change and evolve, if your symptoms worsen or if you develop any new symptoms that are concerning to you please return for evaluation. Your evaluation today does not show any evidence of any life-threatening/serious illnesses requiring admission to the hospital or surgery. Please follow-up with your doctor for re-evaluation in approximately 1 day. Seek immediate medical attention for any worrisome symptoms. *If you do not have a primary care provider please contact the [facility] Resource line at [phone]. They will ask some questions about your medical history and help get you set up with a doctor in the community. Prescriptions: No Action [FISH OIL] Qty: 0 ACETAMINOPHEN 0 mg PO Q4HP Qty: 0 terbinafine HCl [Lamisil] 250 MG tablet 250 mg PO QDAY Qty: 30 0RF betamethasone dipropionate 0.05 % ointment 0.05 % Topical SEE INSTRUCTIONS Qty: 1 1RF Referrals: Alma Robison MD [Primary Care Provider] - Stand Alone Forms: Patient Portal/API/Survey
[2025-01-28 14:10] VITALS: O2SAT 97
--- NOTE | 2025-01-28 14:11 | EKG_ITS ---
[address] [address] Test Date: 2025-01-28 Pat Name: Erica Kenyon Department: Room: Gender: Female [employer]: AZAM : 1955 Requested By: Order Number: [id number] Reading MD: Jose Raygoza Measurements Intervals [place] Rate: 69 P: 34 CO: 158 QRS: 10 QRSD: 78 T: 46 QT: 414 QTc: 443 Interpretive Statements Normal sinus rhythm Electronically Signed On 01-28-2025 17:35:49 PST by Jose Raygoza
[2025-01-28 14:12] VITALS: BP 165/77; PULSE 85; RESP 18; TEMP 36.5; O2SAT 99; BMI 23.6
--- NOTE | 2025-01-28 14:14 | DI.RAD.S_ITS ---
PROCEDURE: XR CHEST 1V INDICATIONS: dizzy TECHNIQUE: One view of the chest was acquired. COMPARISON: [facility], CR, XR CHEST 1V, 10/05/2023, 20:52. FINDINGS: Surgical changes and devices: None. Lungs and pleura: Lungs are clear. No pleural effusions or pneumothorax. Mediastinum: Mediastinal contours appear normal. Heart size is normal. Bones and chest wall: No suspicious bony lesions. Overlying soft tissues appear unremarkable. IMPRESSION: No acute cardiopulmonary abnormality is seen. Dictated by: Arie Farris M.D. on 01/28/2025 at 14:56 Approved by: Arie Farris M.D. on 01/28/2025 at 14:56
--- NOTE | 2025-01-28 14:15 | DI.CT.S_ITS ---
PROCEDURE: CT HEAD/BRAIN WO CON INDICATIONS: dizzy TECHNIQUE: Noncontrast 4.5 mm thick angled axial sections acquired from the foramen magnum to the vertex, with coronal and sagittal reformats. For radiation dose reduction, the following was used: automated exposure control, adjustment of mA and/or kV according to patient size. COMPARISON: None. FINDINGS: Image quality: Diagnostic. CSF spaces: Basal cisterns are patent. No extra-axial fluid collections. The ventricles are symmetric in size and shape. Brain: No intracranial bleeds or masses. There is cerebral volume loss for age, with resultant ventricular and sulcal prominence. There are periventricular and deep white matter chronic small vessel ischemic changes. There is intracranial internal carotid artery atherosclerosis. Skull and face: Calvarium and visualized facial bones appear intact, without suspicious lesions. Incidental note is made of hyperostosis frontalis. This is not considered to be pathologic in a woman of this age. Sinuses: Visualized sinuses and mastoids are clear. IMPRESSION: No imaging explanation is found for this patient's presenting symptoms. No acute intracranial pathology. To the limits of this noncontrast study, no findings of intracranial masses or mass effect can be seen. Dictated by: Marcos Rios M.D. on 01/28/2025 at 14:35 Approved by: Marcos Rios M.D. on 01/28/2025 at 14:36
--- NOTE | 2025-01-28 14:15 | DI.CT.S_ITS ---
PROCEDURE: CT ANGIO HEAD AND NECK INDICATIONS: dizzy TECHNIQUE: After the administration of intravenous contrast, 1 mm thick sections acquired from the aortic arch through the [place]. 3-dimensional awphwvq-mxhmjdcoo-jauulkdtvw (MIP) and/or volume rendering reformats were acquired of the central intracranial vasculature and neck separately. For radiation dose reduction, the following was used: automated exposure control, adjustment of mA and/or kV according to patient size. COMPARISON: [facility], CT, CT HEAD/BRAIN WO CON, 01/28/2025, 15:23. [facility], CR, XR CHEST 1V, 01/28/2025, 14:12. FINDINGS: Image quality: Diagnostic. BRAIN: See separately dictated CT head report of 01/28/2025. HEAD CT ANGIOGRAPHY: Anterior circulation: Intracranial internal carotid arteries are normal in size and flow. The flow within the paired anterior cerebral arteries is normal and symmetric. The flow within the middle cerebral arteries is normal and symmetric. The anterior communicating artery is seen. No aneurysms are seen. Posterior circulation: Visualized portions of the vertebral arteries demonstrate normal caliber, and join to form a normal appearing basilar artery. Flow within the posterior cerebral arteries is normal and symmetric. No aneurysms are seen. NECK CT ANGIOGRAPHY: Carotid system: The great vessels demonstrate a conventional anatomy as they arise from the aortic arch. The origins of the common carotid arteries appear patent. The common carotid arteries demonstrate normal caliber and courses. The bifurcation regions are both widely patent. The internal carotid arteries demonstrate normal calibers and courses. Posterior circulation: The origins of the vertebral arteries both appear widely patent. The more superior extracranial portions of both vertebral arteries also demonstrate normal courses and calibers. They join to form a normal appearing basilar artery. Soft tissues: Visualized neck soft tissues demonstrate no suspicious abnormalities. Bones: No suspicious bony lesions. Visualized cervical spine appears normally aligned. IMPRESSION: No significant intracranial arterial abnormality is seen. No significant abnormality is seen within the arteries of the neck. Any quantitative measurements of stenosis were performed using NASCET criteria. Dictated by: Dorina Vu M.D. on 01/28/2025 at 15:43 Approved by: Dorina Vu M.D. on 01/28/2025 at 15:45
[2025-01-28 14:21] VITALS: BP 165/77; PULSE 75; O2SAT 99
[2025-01-28 14:30] VITALS: BP 147/67; PULSE 66; RESP 12; O2SAT 98
[2025-01-28 14:32] LABS: Add Manual Diff / Slide Review NO; Basophils Absolute Auto 200 /uL (0-100); Eosinophils Absolute Auto 300 /uL (0-450); Eosinophils Percent Auto 3.4 % (2-4); Hematocrit 38.7 % (36-46); Hemoglobin 13.2 g/dL (12.0-16.0); Lymphocytes Absolute Auto 2000 /uL (1100-4500); Lymphocytes Percent Auto 24.6 % (25-40); Mean Corpuscular HGB Conc 34.1 % (30-36); Mean Corpuscular Hemoglobin 29.5 PG (26-34); Mean Corpuscular Volume 86.4 fL (80-100); Monocytes Absolute Auto 400 /uL (0-900); Monocytes Percent Auto 4.7 % (3-14); Neutrophils Absolute Auto 5300 /uL (1500-7000); Neutrophils Percent Auto 65.3 % (50-75); Platelet Count 304 X10^3/uL (150-400); Red Blood Cell Count 4.48 X10^6/uL (4.0-5.2); Red Cell Distribution Width 13.9 % (11.6-14.8); White Blood Cell Count 8.1 X10^3/uL (4.5-11.0)
[2025-01-28 14:56] LABS: Alanine Aminotransferase 26 IU/L (<35); Albumin 4.9 g/dL (3.5-5.0); Albumin Globulin Ratio 1.4 (1.0-2.8); Alkaline Phosphatase 85 U/L (38-126); Aspartate Aminotransferase 31 IU/L (14-36); BUN Creatinine Ratio 18.5 (6-22); Bilirubin Total 0.4 mg/dL (0.2-1.3); Blood Urea Nitrogen 12 mg/dL (7-17); Calcium 9.3 mg/dL (8.4-10.2); Carbon Dioxide 26 mmol/L (22-32); Chloride 102 mmol/L (98-107); Creatine Kinase 59 U/L (30-135); Estimated Glomerular Filt Rate > 60 mL/min (>60); Globulin 3.6 g/dL (1.7-4.1); Glucose 115 mg/dL (80-110); HEMOLYSIS < 15 (0-50); Lipase 111 U/L (23-300); Potassium 3.6 mmol/L (3.4-5.1); Sodium 139 mmol/L (137-145); Total Protein 8.5 g/dL (6.3-8.2)
[2025-01-28 15:00] VITALS: BP 143/68; PULSE 69; RESP 12; O2SAT 99
[2025-01-28 15:07] LABS: Troponin I < 0.012 ng/mL (0.01-0.034)
[2025-01-28 15:15] LABS: COVID-19 CEPHEID 4-PLEX PCR Negative (Negative); Influenza A - CEPHEID Flu A NEGATIVE (NEGATIVE); Influenza B - CEPHEID Flu B NEGATIVE (NEGATIVE); Respiratory Syncytial Virus Negative (Negative)
[2025-01-28 15:30] VITALS: BP 138/81; PULSE 72; RESP 13; RESP 16; O2SAT 98; O2SAT 99
== END 2025-01-28 16:03 | disposition home or self-care (01) ==
PROVIDERS: Emergency Provider Student in an Organized Health Care Education/Training Program; PCP Family Medicine
DX: R42 Dizziness and giddiness (principal)
CPT/HCPCS: 0241U; 36415; 70450; 70496; 70498; 71045; 80053; 81003; 82550; 83690; 83735; 84484; 85025; 93005; 99283; 99284; Q9967